=== PATIENT | male | born 1985 | race Caucasian/White ===

== ENCOUNTER → 2024-02-28 | Outpatient (CLI) | payer OTHER ==
[~2024-02-28] MED LIST: Iohexol 300 - 10 ML VIAL IV ONE; Triamcinolone 40 MG/ML 1 ML VIAL IJ ONE
== END ==
LOC: COL.RAD 07:49
DX: R10.2 Pelvic and perineal pain (principal)
CPT/HCPCS: J0665; J3301; Q9967